=== PATIENT | female | born 1975 | race Caucasian/White ===

== ENCOUNTER 2016-12-28 15:55 | Inpatient (IN) | payer MEDICAID, OTHER ==
[~2016-12-28] VITALS: Ht 167.6 cm; Wt 69.0 kg
[2016-12-28] MEDS ORDERED: MULT1CHW39 PO (16:12)
[2016-12-28] MEDS ORDERED: VITA50TA43 PO (16:12)
[2016-12-28] MEDS ORDERED: TYLE325T5 PO (16:12)
[2016-12-28] MEDS ORDERED: BIOT50005 SL (16:12)
[2016-12-28] MEDS ORDERED: KETOROLAC 30 MG/ML VIAL (J1885) IV ONE (17:00)
[2016-12-28] MEDS ORDERED: ONDANSETRON 4MG/2ML VIAL (J2405) IV ONE (17:00)
[2016-12-28] MEDS ORDERED: NS 500 ML IV ONE (17:00)
[2016-12-28] MEDS ORDERED: GASTROGRAFIN SOLUTION 30ML (Q9963) As Ordered ONE (17:06)
[2016-12-28 17:13] LABS: BASO % 0.5 % (0.0-1.0); EOS # 0.1 K/mm3 (0.0-0.50); LARGE UNSTAINED CELL # 0.1 K/mm3 (0.0-0.4); LARGE UNSTAINED CELL % 1.5 % (0.0-4.0); LYMPH # 1.3 K/mm3 (1.5-4.5); LYMPH % 17.5 % (24.0-44.0); MEAN CORPUSCULAR HEMOGLOBIN 30.2 pg (27.0-33.0); MEAN CORPUSCULAR HGB CONC 33.1 g/dl (32.0-36.5); MEAN CORPUSCULAR VOLUME 91.5 fl (80.0-96.0); MONO # 0.2 K/mm3 (0.0-0.8); NEUTROPHILS # 5.8 K/mm3 (1.8-7.7); NEUTROPHILS % 76.5 % (36.0-66.0); PLATELET COUNT, AUTOMATED 222 k/mm3 (150-450); RED CELL DISTRIBUTION WIDTH 12.2 % (11.5-14.5); WHITE BLOOD COUNT 7.6 K/mm3 (4.0-10.0)
[2016-12-28] MEDS ORDERED: GASTROGRAFIN SOLUTION 30ML (Q9963) PO ONE ×2 (17:15→17:45)
[2016-12-28 17:37] LABS: ALKALINE PHOSPHATASE 93 U/L (45-117); ALT/SGPT 19 U/L (12-78); ANION GAP 8 MEQ/L (8-16); AST/SGOT 11 U/L (15-37); BILIRUBIN,DIRECT 0.1 MG/DL (0.0-0.2); BILIRUBIN,TOTAL 0.5 MG/DL (0.2-1.0); BLOOD UREA NITROGEN 8 MG/DL (7-18); CALCIUM LEVEL 8.5 MG/DL (8.5-10.1); CARBON DIOXIDE LEVEL 27 MEQ/L (21-32); CHLORIDE LEVEL 107 MEQ/L (98-107); CREATININE FOR GFR 0.67 MG/DL (0.55-1.02); GLOMERULAR FILTRATION RATE > 60.0 (>60); GLUCOSE, FASTING 109 MG/DL (70-105); POTASSIUM SERUM 3.8 MEQ/L (3.5-5.1); SODIUM LEVEL 142 MEQ/L (136-145)
[2016-12-28] MEDS ORDERED: MORPHINE 4 MG/ML 1ML SYRINGE IV ONE (17:45)
[2016-12-28] MEDS ORDERED: ISOVUE-370 76% 100ML VIAL (Q9967) As Ordered ONE (18:55)
--- NOTE | 2016-12-28 21:00 | REPUSA ---
CLINICAL HISTORY: Right flank pain. TECHNIQUE: CT abdomen and pelvis following administration of IV contrast. COMPARISON: No pertinent prior studies are available at this time. CT ABDOMEN WITH CONTRAST: Lung bases: No lung base infiltrate or effusion. Stomach: Surgical changes of gastric bypass. Liver: No intrahepatic ductal dilation. Mild perihepatic ascites. Gallbladder: Filled with multiple stones Pancreas: No pancreatic duct dilation. Bowel loops: Nondistended. Despite the possibility of venous volvulus, the small bowel is not distend ed or obstructed. There is a mild thickening of the small bowel link of the right lower quadrant, ho wever. Mesentery: Diffuse haziness of the small bowel mesentery. Of note, the portal venous system cannot be traced through the mesentery, possibly due to venous obstruction as the mesenteric vascular root domingo ears twisted on axial images [id number] Spleen: Normal size. Adrenals: 12 mm left adrenal nodule Kidneys: No stones or hydronephrosis. 4.6 cm left renal cyst. Aorta: Normal caliber. Peritoneum: No free air. CT PELVIS WITH CONTRAST: Bladder: Normally distended. Pelvic organs: Unremarkable. Peritoneum: Moderate free fluid. Skeleton: No acute findings. IMPRESSION: 1. 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 The mesenteric arteries are patent, however. There is diffuse mesenteric edema. If the portal venous system is patent (but not visualized due to the early phase of contrast enhancement), then the appea rajesh may be caused by mesenteritis. 2. Multiple gallbladder stones without CT evidence of cholecystitis. Consider right upper quadrant ul trasound if the patient has strong clinical presentation for cholecystitis. Findings were phoned to the ER emergently.
[2016-12-28] MEDS ORDERED: VITMTA PO (23:10)
[2016-12-28] MEDS ORDERED: TYLE500T78 PO (23:10)
[2016-12-28] MEDS ORDERED: ERTAPENEM 1 GM INJ (INVanz) (J1335) As Ordered ONE ×2 (23:41→23:45)
[2016-12-29] VITALS (10 sets, daily range): BP systolic 90–106; BP diastolic 49–60
[2016-12-29] MEDS ORDERED: fentaNYL 250 MCG/5 ML INJECTION (J3010) As Ordered ONE (00:13)
[2016-12-29] MEDS ORDERED: MIDAZOLAM INJ 2 MG/2 ML VIAL (J2250) As Ordered ONE (00:13)
[2016-12-29] MEDS ORDERED: PROPOFOL 200 MG/20 ML VIAL As Ordered ONE (00:22)
[2016-12-29] MEDS ORDERED: ONDANSETRON 4MG/2ML VIAL (J2405) As Ordered ONE ×2 (00:22→04:11)
[2016-12-29] MEDS ORDERED: dexameTHASONE 4 MG/ML 1ML VIAL (J1100) As Ordered ONE (00:22)
[2016-12-29] MEDS ORDERED: ROCURONIUM BROMIDE 50 MG/5 ML VIAL As Ordered ONE ×2 (00:22→01:57)
[2016-12-29] MEDS ORDERED: LIDOCAINE 2% INJ 100 MG/5 ML SDV (FOR ANES.) As Ordered ONE (00:22)
[2016-12-29] MEDS ORDERED: GLYCOPYRROLATE INJ 0.2 MG/ML 2 ML VIAL As Ordered ONE (00:24)
[2016-12-29] MEDS ORDERED: NEOSTIGMINE 1MG/ML 5 ML SYRINGE (J2710) As Ordered ONE (00:24)
[2016-12-29] MEDS ORDERED: BUPIVACAINE HCL 0.25% 30 ML VIAL As Ordered ONE (00:26)
[2016-12-29] MEDS ORDERED: HYDROmorphone HCL 2 MG/ML 1ML VIAL (J1170) As Ordered ONE (01:59)
[2016-12-29] MEDS ORDERED: MORPHINE 2 MG/ML 1ML SYRINGE IV PRN (03:45)
[2016-12-29] MEDS ORDERED: ONDANSETRON 4MG/2ML VIAL (J2405) IV PRN (03:45)
[2016-12-29] MEDS ORDERED: LR 1,000 ML IV SCH (03:45)
[2016-12-29] MEDS ORDERED: fentaNYL 100 MCG/2 ML INJECTION (J3010) IV PRN (03:45)
[2016-12-29] MEDS ORDERED: PERCOCET 5MG/325MG TAB PO PRN ×2 (03:45)
[2016-12-29] MEDS ORDERED: ACETAMINOPHEN TAB 650MG DOSE (2X325MG) PO PRN (03:45)
[2016-12-29] MEDS ORDERED: METOCLOPRAMIDE INJ 10MG/2ML VIAL (J2765) IV PRN (03:45)
[2016-12-29] MEDS ORDERED: KETOROLAC 30 MG/ML VIAL (J1885) IV PRN (03:45)
[2016-12-29] MEDS: ONDANSETRON 4MG/2ML VIAL (J2405) IV PRN ×2 (03:50→10:38)
[2016-12-29] MEDS: HYDROmorphone HCL 1 MG/ML SYRINGE (J1170) IV PRN ×2 (03:50→04:05)
[2016-12-29] MEDS ORDERED: HYDROmorphone HCL 1 MG/ML SYRINGE (J1170) As Ordered ONE (04:22)
[2016-12-29] MEDS ORDERED: BUPIVACAINE HCL 0.25% 30 ML VIAL SC ONE (05:47)
[2016-12-29] MEDS: LR 1,000 ML IV SCH ×2 (07:03→16:38)
[2016-12-29] MEDS: PERCOCET 5MG/325MG TAB PO PRN ×3 (09:51→21:47)
[2016-12-29] MEDS: ENOXAPARIN 40 MG/0.4 ML SYRINGE (J1650) SC SCH (12:35)
[2016-12-29 17:27] LABS: BASO # 0.1 K/mm3 (0.0-0.2); BASO % 0.6 % (0.0-1.0); LARGE UNSTAINED CELL # 0.2 K/mm3 (0.0-0.4); LARGE UNSTAINED CELL % 1.5 % (0.0-4.0); LYMPH % 10.3 % (24.0-44.0); MEAN CORPUSCULAR HGB CONC 33.6 g/dl (32.0-36.5); MEAN CORPUSCULAR VOLUME 89.4 fl (80.0-96.0); MONO # 0.4 K/mm3 (0.0-0.8); MONO % 4.2 % (0.0-5.0); NEUTROPHILS # 8.4 K/mm3 (1.8-7.7); NEUTROPHILS % 83.4 % (36.0-66.0); PLATELET COUNT, AUTOMATED 163 k/mm3 (150-450); RED CELL DISTRIBUTION WIDTH 12.3 % (11.5-14.5); WHITE BLOOD COUNT 10.1 K/mm3 (4.0-10.0)
[2016-12-29 18:13] LABS: ANION GAP 9 MEQ/L (8-16); BLOOD UREA NITROGEN 11 MG/DL (7-18); CALCIUM LEVEL 7.9 MG/DL (8.5-10.1); CARBON DIOXIDE LEVEL 25 MEQ/L (21-32); CHLORIDE LEVEL 108 MEQ/L (98-107); CREATININE FOR GFR 0.69 MG/DL (0.55-1.02); GLOMERULAR FILTRATION RATE > 60.0 (>60); GLUCOSE, FASTING 110 MG/DL (70-105); POTASSIUM SERUM 4.1 MEQ/L (3.5-5.1); SODIUM LEVEL 142 MEQ/L (136-145)
--- NOTE | 2016-12-29 21:45 | HPE ---
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 HISTORY OF PRESENT ILLNESS: The patient is a very pleasant 41-year-old woman who presented to the emergency department at approximately 4 p.m. on December 28 complaining of back and abdominal pain. The patient reports that she awoke feeling fine on the morning of the . After she had been up for a while, she noted the onset of some pain across her abdomen and into her back. This persisted without relief during the course of the day. As time went on, the pain became somewhat more pronounced. It was most severe right in her mid epigastrium. She had some nausea and vomiting develop. She reports that she has been unable to keep down any food during the day. Of note, she is status post a gastric bypass done in [place] in 2012. The patient reports that she has had some back pain issues, but not like this with involvement of her entire abdomen. She presented to the emergency department where she had some relatively benign-appearing lab work, but then underwent a CT scan of the abdomen and pelvis. This was interpreted by radiology as showing some haziness of the small bowel mesentery with an inability to trace the portal venous system through the mesentery. The radiologist reported that there was a suggestion of a twisting of the mesenteric vascular root identified. She was also noted to have some free fluid within the abdomen. She was also noted to have multiple gallstones but there was no evidence of acute gallbladder inflammation. I was consulted. With the abnormalities noted on CT and her prior history of a gastric bypass, she is now being admitted to undergo emergency laparoscopy and possible laparotomy to address her small bowel vascular impairment. MEDICATIONS Her only routine medications are some Tylenol on an as-needed basis, a daily multivitamin, biotin and vitamin B6. ALLERGIES: The patient denies any known drug allergies PAST MEDICAL HISTORY: Her medical history is significant for the gastric bypass in 2012. She reports no significant problems from this. She does have a history of some back pain and has been followed in the pain clinic for this. PAST SURGICAL HISTORY The patient has undergone her gastric bypass. She has had an endometrial ablation. She reports a bilateral tubal ligation. She has had surgery on her left hand and her right shoulder. REVIEW OF SYSTEMS: The patient denies any chest pain or palpitations or history of cardiac disease. She has no history of lung disease and denies any cough, wheezing or sputum production. She has no dysuria or hematuria. She has had no melena or hematochezia. She has not had a past history of similar abdominal pains or nausea or vomiting. She has had some back pain but denies any other significant bone or joint issues. There is no history of a deep venous thrombosis (DVT) or pulmonary embolus. PHYSICAL EXAMINATION: Physical exam reveals a pleasant woman lying quietly on the hospital stretcher. She has a reported height of 66 inches with a weight of 68 kg. The patient's skin is warm and dry. Sclerae are anicteric. Mucous membranes are moist. Neck is supple without mass or bruit. Heart exam shows a regular rhythm. The lungs are clear. Abdomen is flat with some redundancy of the lower abdominal wall consistent with prior weight loss. She has a few small scars consistent with prior trocar sites. She does have some bowel sounds present. There is perhaps some mild fullness in the mid epigastrium. On percussion there is some mild tenderness across the upper abdomen and with palpation there is some mild to moderate direct tenderness particularly in the mid abdomen in the epigastrium. I do not hear a bruit on auscultation. There is no sign of hernia. Extremities show palpable radial and posterior tibial pulses. There is no peripheral edema. LABORATORY DATA: Laboratory studies include a CBC that shows a white count of 7.6 with a hemoglobin of 14, hematocrit of 43 and platelet count of 222,000. Differential count is 76.5 neutrophils with 18% lymphocytes. Chemistry profile shows normal electrolytes with BUN of 8, creatinine 0.67 and glucose of 109. Liver function tests were all normal with total protein of 8.0 and albumin of 4.0. Lipase is 150. I reviewed the CT scan personally. There does appear to be a twisting or swirling pattern to some of the arterial vessels in the base of the small bowel mesentery with some significant edema noted in the mesentery of the small bowel. There is some free fluid noted in the abdomen but no free air. 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 PLAN: The patient was counseled that there appears to be a partial obstruction in the blood vessels, primarily the veins of the small bowel. I have recommended urgent surgery to perform laparoscopy and possible laparotomy to relieve this venous obstruction and try to identify the cause and repair it. This may well represent an internal hernia which would need to be closed and this may require converting to an open procedure. The patient had an opportunity to ask questions. She desires to proceed with the surgery and we will proceed later this evening as soon as the operating room is available. DEVI
[2016-12-30 02:00] VITALS: BP 98/53
[2016-12-30] MEDS: PERCOCET 5MG/325MG TAB PO PRN ×5 (05:55→22:43)
[2016-12-30 06:00] VITALS: BP 109/59
--- NOTE | 2016-12-30 07:53 | RO ---
DATE OF PROCEDURE: 12/29/2016 PREOPERATIVE DIAGNOSIS: Intestinal volvulus versus internal hernia. POSTOPERATIVE DIAGNOSIS: Internal hernia with intestinal volvulus. PROCEDURE PERFORMED: Laparoscopy with laparotomy and reduction and repair of internal hernia. SURGEON: Dr. Brandon Fraga. ANESTHESIA: General. ESTIMATED BLOOD LOSS: INDICATIONS FOR PROCEDURE: The patient is a 41-year-old woman who is status post a laparoscopic Bolivar-en-Y gastric bypass approximately 4 years earlier. She presented to the emergency department with a 1 day history of constant worsening upper abdominal and back pain. She had tenderness across the upper abdomen and a CT scan showed a moderate amount of free abdominal fluid with edema of the small bowel mesentery and the appearance of a rotational twist in some of the blood supply of the mesentery of the small bowel. She is now for laparoscopy and possible laparotomy for presumed intestinal volvulus or herniation through an internal hernia. OPERATIVE PROCEDURE: The patient was placed under general endotracheal anesthesia. The patient's abdomen was prepped and draped. I elected to place a trocar in the right upper quadrant initially. A small incision was made after achieving local anesthesia and a Veress needle was inserted. However, the insertion was not into the peritoneum but into the abdominal wall only and a small amount of gas was insufflated. I attempted a second time to place the Veress needle again without success and then elected to place a Aldo cannula at the top of the umbilicus. This was accomplished and the abdomen was inflated. The laparoscope was placed. Initial inspection showed a moderately large amount of milky fluid in the pelvis and in the right upper quadrant adjacent to the liver and even between some of the loops of bowel in the upper abdomen. This appeared consistent with chyle. This did not appear infectious. There was no inflammatory exudate noted. The liver appeared normal. The gallbladder was noninflamed. The upper abdominal contents were without obvious inflammation. Two 5 mm trocars were placed. One of these was in the right upper quadrant through the initial Veress needle site and the other was in the left upper quadrant. Graspers were inserted. The patient was tilted to a reverse Trendelenburg position. This made it easier to identify the efferent limb from the patient's gastric pouch. This appeared normal and nondilated. There was a large amount of small bowel in the left upper quadrant and as this was manipulated with graspers , it appeared that there was a large amount of small bowel protruding beneath the efferent limb. A fourth trocar was placed low in the midline with a 5-mm port at this location to try to achieve a better overall view of the area to better determine the cause of the problem. It appeared that there was an internal hernia containing a large amount of small bowel. The bowel did not appear to have vascular impingement. I elected to proceed with a short laparotomy to further explore this to ensure that the appropriate defect had been identified and also to repair this. Therefore the abdomen was deflated and the trocars were removed. An approximately 12 cm midline incision was made beginning just below the umbilicus and incorporating the supraumbilical incision and extending about 10 cm cephalad from the umbilicus. The midline fascia was opened. A Bookwalter retractor was used for exposure. The small bowel was run beginning distally and this was followed proximally. The jejunojejunal anastomosis was identified. From this point, the efferent limb was traced proximally. There had been bowel up in the lateral left upper quadrant which was retracted. There appeared to be some whitish either staining or swelling in portions of the mesentery as this was all reduced. The jejunum at the ligament of Treitz was identified and this was traced distally until all of bowel was clearly identified. There did appear to be a defect at the ligament of Treitz allowing passage of small bowel medially. Several sutures of #3-0 silk were placed to close this opening adjacent to the proximal jejunum. There also appeared to be a defect posterior to the mesentery of the efferent limb as it crossed the colon in antecolic fashion. Again several #3-0 silk sutures were placed to close this open area. After completing this, the bowel all appeared viable. The abdomen was irrigated with some warm saline. Hemostasis was ensured with the cautery. The lap pads and retractors were all removed and after a count of the equipment was reported as correct, the midline peritoneum was closed with a running suture of #0 Chromic. The midline fascia was closed with interrupted simple sutures of #1 Vicryl. Some #3-0 Vicryl sutures were placed in the dermis and subcutaneous tissues to align the skin edges around the umbilicus and the midline incision was closed with a running subcuticular suture of #4-0 Vicryl. The other trocar sites were closed with buried sutures as well. Steri-Strips were applied. The patient tolerated the procedure well without apparent complication. She was awakened in the operating room, extubated and moved to the recovery room in stable condition. DEVI
[2016-12-30 10:00] VITALS: BP 103/56
[2016-12-30] MEDS: ENOXAPARIN 40 MG/0.4 ML SYRINGE (J1650) SC SCH (11:16)
[2016-12-30 14:00] VITALS: BP 105/50
[2016-12-30 17:56] VITALS: BP 104/55
[2016-12-30 22:00] VITALS: BP 101/53
[2016-12-31 02:00] VITALS: BP 103/54
[2016-12-31 06:00] VITALS: BP 122/62
[2016-12-31] MEDS: PERCOCET 5MG/325MG TAB PO PRN (06:05)
[2016-12-31 10:00] VITALS: BP 93/50
[2016-12-31 10:28] VITALS: BP 98/62
[2016-12-31] MEDS ORDERED: PERCOCET PO (11:52)
[2016-12-31] MEDS: ENOXAPARIN 40 MG/0.4 ML SYRINGE (J1650) SC SCH (12:00)
--- NOTE | 2017-01-29 06:13 | DSES ---
DATE OF ADMISSION: 12/28/2016 DATE OF DISCHARGE: 12/31/2016 ADMITTING DIAGNOSIS: Internal hernia versus intestinal volvulus status post bariatric surgery. HISTORY OF PRESENT ILLNESS: The patient is a pleasant 41-year-old woman who presented to the emergency department on December 28 complaining of back in abdominal pain. She had felt well on awakening in the morning, but noted the onset of some pain across her abdomen and into her back. This persisted without relief during the course of the day and became more pronounced. She had some nausea and vomiting. She is status post a gastric bypass done in [place] in 2012. She presented to the emergency department where she had relatively benign-appearing lab work, but underwent a CT scan of the abdomen and pelvis. This was interpreted by radiology as showing some haziness of the small bowel mesentery with an inability to trace the portal venous system through the mesentery. The radiologist reported that there was a suggestion of a twisting of the mesenteric vascular root. She was also noted to have some free fluid within the abdomen. I was consulted and with the CT abnormalities suggestive of some sort of volvulus or internal herniation, she was admitted for emergent surgery. HOSPITAL COURSE: The patient was taken to the operating room where she underwent laparoscopy. 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 The bowel (sound skip) and not ischemic. It was necessary to perform a laparotomy with reduction of the internal hernia and repair of the hernia using sutures to close the defect. She tolerated the surgery well. By postoperative day one, she was feeling pretty comfortable. She took clears well and reported some flatus. She was encouraged to be out of bed and her diet was advanced as tolerated. On 12/30, her abdomen remained thin and flat and her incisions were clean and dry. She managed to move better and plans were made for her discharge on 12/31. She was advanced to a regular diet on 12/30. She tolerated her regular diet well and was discharged home on December 31, 2016. FINAL DIAGNOSES: 1. Internal hernia with intestinal volvulus. 2. Status post Bolivar-en-Y gastric bypass. PROCEDURE PERFORMED: Laparoscopy with laparotomy and reduction of volvulus and repair of internal hernia. DISPOSITION: She was discharged home on 12/31/2016. She was to follow up with me in 10-14 days. She was advised against any lifting greater than 25-30 pounds. She was to call the office for any problems. She was to continue her usual medications. She was provided a prescription for 20 Percocet tablets to take on an as-needed basis.
== END 2016-12-31 13:27 | disposition home or self-care (01) | DRG 229 ==
LOC: M ED 17:51 → M ED INP 23:09 → M ED 23:32 → M MSPAV 12-29 05:20
PROVIDERS: ADMIT Surgery; ATTEND Surgery
PROC: 0DQW0ZZ Repair Peritoneum, Open Approach (ICD-10-PCS; principal; 2016-12-29 23:53)
DX: K46.0 Unspecified abdominal hernia with obstruction, without gangrene (principal)

== ENCOUNTER → 2017-01-30 | Outpatient (CLI) | payer OTHER ==
[~2017-01-30] MED LIST: BIOT50005 SL; E-Z-GAS II EFFERVESCENT PACKET (SODIUM BICARB./CITRIC ACID/SIMETHICONE) As Ordered ONE; E-Z-HD 98% w/w 340GM SUSP BTL As Ordered ONE; E-Z-PAQUE 96% w/w SUSP 176GM BTL As Ordered ONE; MULT1CHW39 PO; PERCOCET PO; TYLE325T5 PO; TYLE500T78 PO; VITA50TA43 PO; VITMTA PO
--- NOTE | 2017-01-30 17:14 | REP ---
UPPER GI, AIR CONTRAST AND SMALL BOWEL FOLLOW THROUGH: The procedure was performed under the direct supervision of Dr. Jones. The film washer film shows no organomegaly or pathological masses. The intestinal gas pattern is nonspecific. There are bowel sutures noted in the epigastric region and left abdomen consistent with the patient's history of prior gastric bypass and hiatal hernia repair. There are multiple gall stones identified. These were also seen on a previous CAT scan dated 12/28/2016. Liquid barium was administered in the erect and prone oblique positions. The oral and pharyngeal stage of deglutition are unremarkable. Esophageal transport is prompt and efficient and there is no esophagitis, stricture, mucosal ring, or hiatal hernia. Gastroesophageal reflux is not demonstrated on this examination. The contrast passes through the stomach pouch and anastomosis without delay. There is no evidence of gastritis, neoplasm or ulcer disease. The visualized portion of the proximal small bowel appears normal in course and caliber. The barium column was followed through the small bowel to the level of the terminal ileum. Small bowel transit time is approximately 15 minutes. During fluoroscopy gentle palpation shows all loops are freely movable and pliable. There are no fixed or angulated loops. The small bowel mucosal pattern is normal in course and caliber. There is no transition to suggest a partial small bowel obstruction. Spot filming of terminal ileum shows it to be unremarkable. IMPRESSION: Postoperative changes consistent with the patient's history of gastric bypass and hiatal hernia repair. Otherwise unremarkable single contrast upper GI and small bowel follow through examination. 2 minutes and 35 seconds of fluoroscopic time was utilized for this procedure. Reviewed by TREVA Bacon 01/31/2017 08:52 AEdited and Signed by Sandoval Jones MD 01/31/2017 12:46 P
== END ==
LOC: M RAD 09:04
PROVIDERS: ATTEND Surgery
DX: R19.4 Change in bowel habit (principal)

== ENCOUNTER → 2021-03-16 | Outpatient (CLI) | payer OTHER ==
[~2021-03-16] MED LIST changes: -E-Z-GAS II EFFERVESCENT PACKET (SODIUM BICARB./CITRIC ACID/SIMETHICONE) As Ordered ONE; -E-Z-HD 98% w/w 340GM SUSP BTL As Ordered ONE; -E-Z-PAQUE 96% w/w SUSP 176GM BTL As Ordered ONE; -MULT1CHW39 PO; +MULT200T7 PO
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
== END ==
LOC: M PAIN 14:00
PROVIDERS: ATTEND Nurse Practitioner Family
DX: M51.27 Other intervertebral disc displacement, lumbosacral region (principal); M79.7 Fibromyalgia; G43.909 Migraine, unspecified, not intractable, without status migrainosus; Z98.84 Bariatric surgery status; Z86.59 Personal history of other mental and behavioral disorders; Z88.8 Allergy status to other drugs, medicaments and biological substances; E66.01 Morbid (severe) obesity due to excess calories; Z68.42 Body mass index [BMI] 45.0-49.9, adult; Z79.899 Other long term (current) drug therapy

== ENCOUNTER → 2021-07-11 | Outpatient (CLI) | payer OTHER | LOC: M PAIN 11:45 | PROVIDERS: ATTEND Anesthesiology | DX: M51.16 Intervertebral disc disorders with radiculopathy, lumbar region (principal); G89.29 Other chronic pain; G43.909 Migraine, unspecified, not intractable, without status migrainosus; Z98.84 Bariatric surgery status; Z86.59 Personal history of other mental and behavioral disorders; Z88.8 Allergy status to other drugs, medicaments and biological substances; Z79.891 Long term (current) use of opiate analgesic; Z79.899 Other long term (current) drug therapy ==

== ENCOUNTER → 2021-08-31 | Outpatient (CLI) | payer OTHER | LOC: M PAIN 14:00 | PROVIDERS: ATTEND Anesthesiology | DX: M51.16 Intervertebral disc disorders with radiculopathy, lumbar region (principal); G89.29 Other chronic pain; G43.909 Migraine, unspecified, not intractable, without status migrainosus; Z86.59 Personal history of other mental and behavioral disorders; Z98.84 Bariatric surgery status; Z88.8 Allergy status to other drugs, medicaments and biological substances; E66.01 Morbid (severe) obesity due to excess calories; Z68.42 Body mass index [BMI] 45.0-49.9, adult; Z79.891 Long term (current) use of opiate analgesic; Z79.899 Other long term (current) drug therapy ==

== ENCOUNTER → 2021-12-25 | Outpatient (CLI) | payer OTHER ==
[~2021-12-25] MED LIST changes: +ISOVUE-M 300 61% 15ML VIAL As Ordered ONE; +LIDOCAINE 1% SDV 30ML VIAL As Ordered ONE; +NORCO, ANEXSIA 5/325MG TABLET (HYDROcodone/ACETAMINOPHEN) As Ordered ONE; +diazePAM 5MG TABLET As Ordered ONE; +methylPREDNISolone SUSP 40MG/ML 1ML VIAL (DEPO MEDROL) As Ordered ONE
== END ==
LOC: M PAIN 13:45
PROVIDERS: ATTEND Anesthesiology
DX: M51.16 Intervertebral disc disorders with radiculopathy, lumbar region (principal); G43.909 Migraine, unspecified, not intractable, without status migrainosus; Z98.84 Bariatric surgery status; Z86.59 Personal history of other mental and behavioral disorders; Z88.8 Allergy status to other drugs, medicaments and biological substances; E66.01 Morbid (severe) obesity due to excess calories; Z68.42 Body mass index [BMI] 45.0-49.9, adult; Z79.891 Long term (current) use of opiate analgesic; Z79.899 Other long term (current) drug therapy
CPT/HCPCS: 62323; J1030; Q9967

== ENCOUNTER → 2022-02-14 | Outpatient (CLI) | payer OTHER ==
[~2022-02-14] MED LIST changes: -ISOVUE-M 300 61% 15ML VIAL As Ordered ONE; -LIDOCAINE 1% SDV 30ML VIAL As Ordered ONE; -NORCO, ANEXSIA 5/325MG TABLET (HYDROcodone/ACETAMINOPHEN) As Ordered ONE; -diazePAM 5MG TABLET As Ordered ONE; -methylPREDNISolone SUSP 40MG/ML 1ML VIAL (DEPO MEDROL) As Ordered ONE
== END ==
LOC: M PAIN 14:15
PROVIDERS: ATTEND Nurse Practitioner Family
DX: Z53.29 Procedure and treatment not carried out because of patient's decision for other reasons (principal)

== ENCOUNTER → 2022-04-09 | Outpatient (CLI) | payer OTHER | LOC: M PAIN 14:00 | PROVIDERS: ATTEND Nurse Practitioner Family | DX: M51.16 Intervertebral disc disorders with radiculopathy, lumbar region (principal); G89.29 Other chronic pain; G43.909 Migraine, unspecified, not intractable, without status migrainosus; Z86.59 Personal history of other mental and behavioral disorders; Z98.84 Bariatric surgery status; Z88.8 Allergy status to other drugs, medicaments and biological substances; E66.01 Morbid (severe) obesity due to excess calories; Z68.43 Body mass index [BMI] 50.0-59.9, adult; Z79.899 Other long term (current) drug therapy ==

== ENCOUNTER → 2022-06-03 | Outpatient (CLI) | payer OTHER | LOC: M PAIN 14:15 | PROVIDERS: ATTEND Anesthesiology | DX: M51.16 Intervertebral disc disorders with radiculopathy, lumbar region (principal); G43.909 Migraine, unspecified, not intractable, without status migrainosus; F32.A Depression, unspecified; F41.9 Anxiety disorder, unspecified; E66.09 Other obesity due to excess calories; J30.1 Allergic rhinitis due to pollen; E55.9 Vitamin D deficiency, unspecified; Z98.84 Bariatric surgery status; Z79.891 Long term (current) use of opiate analgesic; Z79.899 Other long term (current) drug therapy; Z88.8 Allergy status to other drugs, medicaments and biological substances; Z68.43 Body mass index [BMI] 50.0-59.9, adult ==